=== PATIENT | male | born 1955 | race Caucasian/White ===

== ENCOUNTER 2023-11-16 11:32 | Outpatient (CLI) | payer MEDICARE, OTHER | END 2023-11-16 11:33 | disposition home or self-care (01) | LOC: SCSRAD 11:32 | PROVIDERS: ATTEND Family Medicine | DX: M25.511 Pain in right shoulder (principal); M19.011 Primary osteoarthritis, right shoulder | CPT/HCPCS: 73030; 80061; 82306; 82607; 84439; G0103; 36415; 80053; 84443; 85025 ==